=== PATIENT | female | born 2000 | race Caucasian/White ===

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

== ENCOUNTER 2022-05-08 03:15 | Outpatient (CLI) | payer BC, MEDICAID, SELFPAY ==
[2022-05-09 09:38] LABS: HBs Antibody, Quant 5.2 mIU/mL (See Note); Hep B Surface Ab Negative (See Note); Hepatitis B Core Antibody Negative (Negative); Hepatitis B Surface Antigen Negative (Negative)
[2022-05-09 11:45] LABS: Measles IgG Antibody Positive (See Note); Mumps Antibody IgG Negative (See Note)
[2022-05-09 11:50] LABS: Rubella IgG Ab (UVM) Positive (See Note)
== END 2022-05-08 03:16 | disposition home or self-care (01) ==
LOC: LBO 03:18
PROVIDERS: PCP Nurse Practitioner Pediatrics; Visit Provider Pediatrics
DX: Z11.59 Encounter for screening for other viral diseases (principal); Z01.84 Encounter for antibody response examination
CPT/HCPCS: 36415; 86704; 86706; 87340; 86735; 86762; 86765

== ENCOUNTER 2022-07-17 17:21 | Outpatient (REF) | payer BC, MEDICAID, SELFPAY ==
--- NOTE | 2022-07-17 13:15 | PAPFT_PTH ---
PATIENT: Whit Dan LOC: [facility] U#:[id number] AGE/SX: 21/F ROOM: RE07/17/[address]: Nancy Chapman DO : 2000 BED: DIS: 07/17/2022 SPEC #: [id number] RECD: 07/17/22 18:05 STATUS: LENNY REQ #: [id number] ESTRELLITA: 07/17/22 13:[address]: Nancy Chapman DEPT: [facility] Cytology RECD BY: Zahira Burch ENTERED: 07/17/22 18:06 SP TYPE: PAPFT OTHR DR: KAYLAN Hawthorne Tissues: 1 - CX/ENDOCX FOR PAP SMEARS Procedures: PAP THIN PREP/[facility] Screening Comments: [id number] (CHLAMYDIA/GC) (UNSATISFACTORY FOR EVALUATION)
[2022-07-18 15:23] LABS: Chlamydia Result Negative (Negative); GC Result Negative (Negative)
== END 2022-07-17 17:22 | disposition home or self-care (01) ==
LOC: LBN 17:21
PROVIDERS: PCP Nurse Practitioner Pediatrics; Visit Provider Obstetrics & Gynecology
DX: Z12.4 Encounter for screening for malignant neoplasm of cervix (principal); Z11.3 Encounter for screening for infections with a predominantly sexual mode of transmission; R87.615 Unsatisfactory cytologic smear of cervix
CPT/HCPCS: 87491; 87591; 88142

== ENCOUNTER 2022-08-08 01:47 | Outpatient (CLI) | payer BC, MEDICAID, SELFPAY ==
[2022-08-11 10:23] LABS: HBs Antibody, Quant >1000.0 mIU/mL (See Note); Hep B Surface Ab Positive (See Note); Hepatitis B Core Antibody Negative (Negative); Hepatitis B Surface Antigen Negative (Negative)
[2022-08-11 11:30] LABS: Measles IgG Antibody Positive (See Note); Mumps Antibody IgG Positive (See Note)
[2022-08-11 11:33] LABS: Rubella IgG Ab (UVM) Positive (See Note)
== END 2022-08-08 01:48 | disposition home or self-care (01) ==
PROVIDERS: PCP Nurse Practitioner Pediatrics; Visit Provider Pediatrics
DX: Z11.59 Encounter for screening for other viral diseases (principal); Z01.84 Encounter for antibody response examination
CPT/HCPCS: 36415; 86704; 86706; 87340; 86735; 86762; 86765

== ENCOUNTER 2022-08-26 16:45 | Outpatient (REF) | payer BC, MEDICAID, SELFPAY ==
[2022-08-27 14:14] LABS: Chlamydia Result Negative (Negative); GC Result Negative (Negative)
== END 2022-08-26 16:46 | disposition home or self-care (01) ==
LOC: LBN 16:45
PROVIDERS: PCP Nurse Practitioner Pediatrics; Visit Provider Obstetrics & Gynecology
DX: Z11.3 Encounter for screening for infections with a predominantly sexual mode of transmission (principal)
CPT/HCPCS: 87491; 87591

== ENCOUNTER 2023-09-11 13:46 | Outpatient (REF) | payer BC, SELFPAY | END 2023-09-11 13:47 | disposition home or self-care (01) | LOC: LBN 13:46 | PROVIDERS: Visit Provider Obstetrics & Gynecology | DX: N89.8 Other specified noninflammatory disorders of vagina (principal) | CPT/HCPCS: 87480; 87510; 87660 ==

== ENCOUNTER 2024-01-28 15:25 | Outpatient (REF) | payer BC, SELFPAY ==
--- NOTE | 2024-01-28 15:20 | PAPFT_PTH ---
PATIENT: Whit Dan LOC: [facility] U#:[id number] AGE/SX: 23/F ROOM: RE01/28/[address]: Nancy Chapman DO : 2000 BED: DIS: 01/28/2024 SPEC #: [id number] RECD: 01/28/24 18:23 STATUS: JAIMIEJosh REQ #: [id number] ESTRELLITA: 01/28/24 15:[address]: Nancy Chapman DEPT: [facility] Cytology RECD BY: Zahira Burch ENTERED: 01/28/24 18:23 SP TYPE: PAPFT OTHR DR: Pearl Dubon MD Tissues: 1 - CX/ENDOCX FOR PAP SMEARS Procedures: PAP THIN PREP/[facility] Screening HPV DNA PROBE Comments: [id number] (CHLAMYDIA/GC)
[2024-01-29 13:41] LABS: Chlamydia Result Negative (Negative); GC Result Negative (Negative)
== END 2024-01-28 15:26 | disposition home or self-care (01) ==
LOC: LBN 15:25
PROVIDERS: Visit Provider Obstetrics & Gynecology
DX: Z12.4 Encounter for screening for malignant neoplasm of cervix (principal); D26.0 Other benign neoplasm of cervix uteri
CPT/HCPCS: 87491; 87591; 88142; 87624

== ENCOUNTER 2024-05-19 09:49 | Outpatient (RCR) | payer BC, SELFPAY ==
--- NOTE | 2024-05-19 11:00 | HOLTER_ITS ---
APPROVED REPORT Conclusion This is a 48-hour Holter monitor Rhythm throughout was sinus with an average heart rate of 83. Minimum was 54, maximum 134 There were very rare isolated atrial and ventricular ectopic beats There was no atrial fibrillation, no high-grade AV block, no pauses greater than 3 seconds No patient symptoms were reported
== END 2024-06-04 23:59 | disposition home or self-care (01) ==
LOC: CARDOPNVT 09:49
PROVIDERS: PCP Nurse Practitioner Family; Visit Provider Internal Medicine Cardiovascular Disease
DX: R00.2 Palpitations (principal)
CPT/HCPCS: 93225; 93226

== ENCOUNTER 2024-06-08 03:06 | Outpatient (CLI) | payer BC, SELFPAY ==
[2024-06-08 14:05] LABS: Abs Immature Grans 0.04 10^3/uL (0.0-0.06); Absolute Basophil Count 0.06 10^3/uL (0.0-0.2); Absolute Lymphocyte Count 2.94 10^3/uL (1.2-3.4); Absolute Monocyte Count 0.87 10^3/uL (0.1-0.8); Basophils % 0.5 %; Eosinophils % 0.8 %; HCT 43.1 % (36.0-46.0); HGB 14.5 g/dL (11.2-15.7); Immature Grans % 0.3 %; Lymphocytes % 24.8 %; MCH 27.8 pg (27.0-33.0); MCHC 33.6 % (32.0-36.0); MCV 83 fL (80-95); MPV 9.7 fL (8.0-11.0); Monocytes % 7.3 %; Neutrophils % 66.3 %; Platelet Count 246 10^3/uL (130-400); RBC 5.21 10^6/uL (3.93-5.22); RDW 12.6 % (11.7-14.6); RDW-SD 37.9 fL; WBC 11.86 10^3/uL (4.4-10.8)
[2024-06-08 14:06] LABS: Absolute Eosinophil Count 0.09 10^3/uL (0.0-0.7); Absolute Neutrophil Count 7.86 10^3/uL (1.2-6.7)
[2024-06-08 15:23] LABS: ALT 22 U/L (14-59); AST 15 U/L (15-37); Albumin 3.9 g/dL (3.4-5.0); Alkaline Phosphatase 100 U/L (46-116); Anion Gap 6.3 mmol/L (3-11); BUN 10 mg/dL (7-18); CO2 27.7 mmol/L (21.0-32.0); CREATININE 0.8 mg/dL (0.55-1.02); Calcium 9.4 mg/dL (8.5-10.1); Chloride 107 mmol/L (98-107); Estimated GFR 107.44 (mL/min/1.73m2); Glucose 91 mg/dL (74-106); Potassium 3.7 mmol/L (3.5-5.1); Sodium 141 mmol/L (136-145); TSH (W/Ref FT4) 1.31 uIU/mL (0.36-3.74); Total Protein 6.9 g/dL (6.4-8.2)
== END 2024-06-08 03:07 | disposition home or self-care (01) ==
LOC: LBO 03:06
PROVIDERS: PCP Nurse Practitioner Family; Visit Provider Nurse Practitioner Family
DX: I49.9 Cardiac arrhythmia, unspecified (principal)
CPT/HCPCS: 36415; 80053; 84443; 85025

== ENCOUNTER 2024-07-01 02:18 | Outpatient (CLI) | payer BC, SELFPAY ==
[2024-07-01 10:32] LABS: Calculated LDL 135 mg/dL (<100); Cholesterol 197 mg/dL (<200); HDL Cholesterol 48 mg/dL (40-60); Magnesium 2.2 mg/dL (1.8-2.4); Triglyceride 73 mg/dL (<150)
[2024-07-01 10:44] LABS: Hemoglobin A1C 5.1 % (<5.7)
== END 2024-07-01 02:19 | disposition home or self-care (01) ==
LOC: LBO 02:18
PROVIDERS: PCP Nurse Practitioner Family; Visit Provider Nurse Practitioner Family
DX: E66.9 Obesity, unspecified (principal)
CPT/HCPCS: 36415; 80061; 83036; 83735

== ENCOUNTER 2024-07-01 09:52 | Outpatient (CLI) | payer BC, SELFPAY | END 2024-07-01 09:53 | disposition home or self-care (01) | PROVIDERS: PCP Nurse Practitioner Family; Visit Provider Nurse Practitioner Family | DX: R00.2 Palpitations (principal) | CPT/HCPCS: 93246 ==

== ENCOUNTER 2024-07-25 09:55 | Outpatient (CLI) | payer BC, SELFPAY ==
--- NOTE | 2024-07-25 11:45 | W.CARDEVENT ---
Date of service: 07/25/24 Time of Service: 11:45 Cardiac Event Recorder Referring Provider:: Araceli Kat Indications:: palpitations Cardiac Event Note: This is a cardiac event monitor. Patient was monitored for 10 days and 10 hours. Rhythm throughout was sinus. Average heart rate was 86. Minimum was 46, maximum 157. There were a total of 4 isolated premature ventricular contractions There was no atrial fibrillation, no high-grade AV block, no pauses greater than 3 seconds Symptoms were reported which correlated to sinus tachycardia, rates ranging from 103,, 123 97, 101,
== END 2024-07-25 09:56 | disposition home or self-care (01) ==
LOC: CARDOPNVT 09:55
PROVIDERS: PCP Nurse Practitioner Family; Referring Provider Nurse Practitioner Family; Visit Provider Internal Medicine Cardiovascular Disease
DX: I49.3 Ventricular premature depolarization

== ENCOUNTER 2024-10-31 02:05 | Outpatient (CLI) | payer BC, SELFPAY ==
--- NOTE | 2024-10-31 09:30 | DI.US_ITS ---
APPROVED REPORT EXAM: Comprehensive 2D, Doppler, and color-flow Echocardiogram Patient Location: Out-Patient Loss Prevention Manager: Chris Sotelo RDCS (AE) Indications: Screening for aortic aneurysm, family history Other Information Study Quality: Adequate Conclusion Normal left ventricular wall thickness and chamber size. Ejection fraction is 60%. Wall motion is n ormal Normal right ventricular size and function Both atria are normal in size There is no structural or hemodynamically significant valvular disease Aortic root and ascending aorta are normal in size Wall motion Left Ventricle The left ventricle is normal size. Left ventricular systolic function is normal. The left ventricular ejection fraction is within the normal range. There is normal left ventricular wall thickness. There is normal LV segmental wall motion. The left ventricular diastolic function is normal. There is no v entricular septal defect visualized. LVEF is 60%. Right Ventricle The right ventricle is normal size. The right ventricular systolic function is normal. Atria The left atrium size is normal. The right atrium size is normal. Aortic Valve The aortic valve is normal in structure. Aortic valve is trileaflet. There is no aortic valvular sten osis. No aortic regurgitation is present. Mitral Valve The mitral valve is normal in structure. No evidence of mitral valve stenosis. There is no mitral maris ve regurgitation noted. Tricuspid Valve The tricuspid valve is normal in structure. There is no tricuspid valve stenosis. There is trivial tr icuspid valve regurgitation noted. Unable to assess PA pressure. Pulmonic Valve The pulmonary valve is normal in structure. There is no pulmonic valvular stenosis. There is trivial pulmonic valvular regurgitation. Great Vessels The aortic root is normal in size. The ascending aorta is normal in size. Aortic arch is normal in ca liber. IVC is normal in size and collapses >50% with inspiration. Pericardium There is no pericardial effusion. 2D Dimensions IVSD d PLAX 0.80 cm F: 0.6-1.0 Ao Root d 2.25 cm F: 2.7 - 3.3 LVPW d PLAX 0.76 cm F: 0.6 - 1.0 Ao Asc Diam d 2.50 cm F: 2.3 - 3.1 LVID d PLAX 4.02 cm F: 3.8 - 5.2 Prox Ao Arch 2.2 cm LVDs 2.76 cm F: 2.2 - 3.5 LV EF Teichholz 59.7 % FS 31.34 % LV EDV (Teich) 70.9 mL LV ESV (Teich) 28.6 mL Stroke Vol Index (Teich) 24.63 M-Mode TAPSE 2.25 cm (M/F) >1.7 Auto EF LV EDV A4C 91.1 mL LV EDV A2C 76.1 mL LV EDV BP 82.7 mL LV ESV A4C 40.1 mL LV ESV A2C 32.5 mL LV ESV BP 36.1 mL LVEF(%) A4C 56.0 % LVEF(%) A2C 57.3 % LVEF(%) BP 56.3 % LV SV A4C 51.0 ml LV SV A2C 43.6 ml LV SV BP 46.5 ml LV CO A4C 4.6 L/min LV CO A2C 3.8 L/min LV CO BP 4.2 L/min HR A4C 90.91 BPM HR A2C 87.17 BPM LV EDV Index (BP) LA Volume LA Length A4C 3.4 cm LA Length A2C 3.4 cm LA Area A4C s 5.36 cm2 LA Area A2C s 6.40 cm2 LA Vol A4C A-L 7.12 mL LA Vol A2C A-L 10.37 mL LA Vol Biplane A-L 8.7 mL LA Vol/BSA A4C A-L LA Vol/BSA A2C A-L LA Vol/BSA BP A-L 5.0 mL/m2 LA Vol A4C MOD 6.1 mL LA Vol A2C MOD 9.6 mL LA Vol BP MOD 7.7 mL RA Volume RA Area A4C 6.8 cm2 RA ESV A4C (A-L) 12.0mL RA Vol/BSA A4C A-L RA Length A4C 3.2 cm RA ESV A4C (MOD) 11.4mL LV Diastology MV E' medial 0.112 (>0.07 m/s) MV E Vmax 0.70 (0.4-1.3 m/s) MV E/E' MED 6.30 (<14) MV A Vmax 0.55 (0.4-1.3 m/s) MV E' lateral 0.199 (>0.1 m/s) E/A Ratio 1.3 MV E/E' LAT 3.54 (<14) MV E' Average 0.155 m/s MV E/E'(average) 4.53 Aortic Valve AoV Vmax 1.19 m/s LVOT Vmax 1.00 m/s AoV Peak Grad 5.6 mmHg LVOT Peak Grad 4.0 mmHg AoV Area (Vmax) 2.27 cm2 LVOT VTI 0.200 m AoV VTI 0.221 m LVOT Mean Grad 2.2 mmHg AoV Mean Bruce. 0.82 m/s LVOT SV 54.03 mL AoV Mean Grad 3.0 mmHg LVOT Diam s 1.85 cm AoV Area (VTI) 2.44 cm2 AV Regurg Peak Gr. 5.65 mmHg Velocity Ratio 0.84 Mitral Valve MV DT 176 (160-240 msec) Pulmonary Valve PV Vmax 1.06 (0.5-1.5 m/s) RVOT Vmax 0.73 m/s PV Peak Grad 4.5 mmHg RVOT Peak Gr. 2.1 mmHg PV Mean Bruce 0.76 m/s RVOT VTI 0.134 m PV Mean Grad 2.6 mmHg RVOT Mean Gr. 1.2 mmHg
== END 2024-10-31 02:25 ==
LOC: DI 02:05
PROVIDERS: PCP Nurse Practitioner Family; Visit Provider Internal Medicine Cardiovascular Disease
DX: Z82.49 Family history of ischemic heart disease and other diseases of the circulatory system (principal); Z13.6 Encounter for screening for cardiovascular disorders
CPT/HCPCS: 93306

== ENCOUNTER 2025-06-16 16:24 | Outpatient (CLI) | payer BC, SELFPAY ==
[2025-06-16 16:00] LABS: Abs Immature Grans 0.02 10^3/uL (0.0-0.06); HCT 42.8 % (36.0-46.0); HGB 14.4 g/dL (11.2-15.7); Immature Grans % 0.2 %; MCH 27.9 pg (27.0-33.0); MCHC 33.6 % (32.0-36.0); MCV 83 fL (80-95); MPV 9.6 fL (8.0-11.0); Platelet Count 192 10^3/uL (130-400); RBC 5.17 10^6/uL (3.93-5.22); RDW 12.0 % (11.7-14.6); RDW-SD 36.9 fL; WBC 8.59 10^3/uL (4.4-10.8)
[2025-06-16 17:41] LABS: ALT 17 U/L (14-59); AST 11 U/L (15-37); Albumin 4.0 g/dL (3.4-5.0); Alkaline Phosphatase 84 U/L (46-116); Anion Gap 9.3 mmol/L (3-11); BUN 10 mg/dL (7-18); Bilirubin, Total 0.8 mg/dL (0.2-1.0); CO2 29.7 mmol/L (21.0-32.0); Calcium 9.0 mg/dL (8.5-10.1); Chloride 104 mmol/L (98-107); Estimated GFR 130.07 (mL/min/1.73m2); Ferritin 235 ng/mL (8-252); Glucose 66 mg/dL (74-106); Potassium 3.9 mmol/L (3.5-5.1); Sodium 143 mmol/L (136-145); TSH (W/Ref FT4) 1.43 uIU/mL (0.36-3.74); Total Protein 6.7 g/dL (6.4-8.2)
== END 2025-06-16 16:25 | disposition home or self-care (01) ==
LOC: LBO 16:24
PROVIDERS: PCP Nurse Practitioner Family; Visit Provider Nurse Practitioner Family
DX: R53.83 Other fatigue (principal)
CPT/HCPCS: 36415; 80053; 82728; 84443; 85025